=== PATIENT | male | born 2000 | race Hispanic/Latino ===

== ENCOUNTER → 2019-04-26 | Outpatient (CLI) | payer BC ==
--- NOTE | 2019-04-26 14:51 | Diagnostic Imaging Report ---
EXAM: Focused Soft Tissue Ultrasound Evaluation of right chest wall INDICATION: ^NEOPLASM OF CHEST WALL COMPARISON: None TECHNIQUE: Morrow scale, color Doppler images of the subcutaneous soft tissues of the right chest wall were obtained. FINDINGS: There is a 4 x 3 x 2 mm hypoechoic nodule in the subcutaneous soft tissues of the right chest wall along the fascia. No significant associated vascularity. IMPRESSION: Right chest wall subcutaneous 4 x 3 x 2 mm hypoechoic nodule along the fascia is nonspecific and may represent a variety of inflammatory or less likely neoplastic processes including nodular fasciitis. Signed by: Billy Mcfarland MD on 04/26/2019 2:47 PM
== END ==
LOC: US 14:00
PROVIDERS: ATTEND Family Medicine
DX: R91.8 Other nonspecific abnormal finding of lung field (principal); D48.7 Neoplasm of uncertain behavior of other specified sites
CPT/HCPCS: 76604

== ENCOUNTER → 2019-05-24 | Outpatient (CLI) | payer BC ==
--- NOTE | 2019-05-24 17:58 | Diagnostic Imaging Report ---
Exam: Left shoulder 2 views Clinical History: Trauma Findings: There is no evidence of acute fracture or malalignment. The articular joints are well-preserved. The soft tissue is unremarkable. Impression: No radiographic evidence of acute osseous injury. Signed by: Dr. Filipe Cano MD on 05/24/2019 5:54 PM
== END ==
LOC: RAD 16:48
PROVIDERS: ATTEND Family Medicine
DX: M25.512 Pain in left shoulder (principal); S49.92XA Unspecified injury of left shoulder and upper arm, initial encounter